=== PATIENT | female | born 1945 | race Native Hawaiian/Other Pacific Islander ===

== ENCOUNTER 2016-08-05 16:02 | Outpatient (CLI) | payer OTHER, BC | END 2016-08-05 16:03 | disposition short-term general hospital (02) | LOC: AMB 16:02 | DX: R53.1 Weakness (principal); R11.2 Nausea with vomiting, unspecified | CPT/HCPCS: A0425; A0427 ==

== ENCOUNTER 2016-10-20 08:11 | Outpatient (CLI) | payer OTHER, BC | END 2016-10-20 19:04 | disposition home or self-care (01) | LOC: MAMMO 08:11 | DX: Z12.31 Encounter for screening mammogram for malignant neoplasm of breast (principal) | CPT/HCPCS: G0202-TC ==

== ENCOUNTER 2016-11-07 07:56 | Day surgery (SDC) | payer OTHER, BC ==
[2016-11-07 09:12] LABS: POTASSIUM 3.6 mmol/L (3.6-5.2)
[2016-11-07 09:24] LABS: PLATELET COUNT 287 K/uL (152-353)
== END 2016-11-07 12:05 | disposition home or self-care (01) ==
LOC: OR 07:56
PROVIDERS: Student in an Organized Health Care Education/Training Program
PROC: 0DBK8ZX Excision of Ascending Colon, Via Natural or Artificial Opening Endoscopic, Diagnostic (ICD-10-PCS; principal; 2016-11-07)
PROC: 0DBN8ZX Excision of Sigmoid Colon, Via Natural or Artificial Opening Endoscopic, Diagnostic (ICD-10-PCS; 2016-11-07)
PROC: 0DBM8ZX Excision of Descending Colon, Via Natural or Artificial Opening Endoscopic, Diagnostic (ICD-10-PCS; 2016-11-07)
DX: D12.2 Benign neoplasm of ascending colon (principal); D12.0 Benign neoplasm of cecum; D12.4 Benign neoplasm of descending colon; D12.5 Benign neoplasm of sigmoid colon; D12.6 Benign neoplasm of colon, unspecified; K63.5 Polyp of colon
CPT/HCPCS: 80053; 85027; J2001; J2704; J3010; J3490

== ENCOUNTER 2016-12-05 06:53 | Outpatient (CLI) | payer OTHER, BC | END 2016-12-05 08:30 | disposition home or self-care (01) | LOC: NM 06:53 | DX: R06.09 Other forms of dyspnea (principal) | CPT/HCPCS: A9500; J2785 ==

== ENCOUNTER 2017-05-09 16:32 | Outpatient (CLI) | payer OTHER, BC, MEDICARE | END 2017-05-09 19:59 | disposition home or self-care (01) | LOC: LABW 16:32 | PROVIDERS: Internal Medicine Cardiovascular Disease | DX: E78.4 Other hyperlipidemia (principal) | CPT/HCPCS: 80061 ==

== ENCOUNTER 2017-09-11 09:49 | Outpatient (CLI) | payer OTHER, BC, MEDICARE | END 2017-09-11 18:18 | disposition home or self-care (01) | LOC: LABW 09:49 | PROVIDERS: Internal Medicine Cardiovascular Disease | DX: E78.4 Other hyperlipidemia (principal) | CPT/HCPCS: 36415; 80061 ==

== ENCOUNTER 2017-10-15 11:19 | Outpatient (CLI) | payer OTHER, BC, MEDICARE | END 2017-10-15 22:12 | disposition home or self-care (01) | LOC: RAD 11:19 | DX: M25.561 Pain in right knee (principal) ==

== ENCOUNTER 2017-10-17 11:17 | Outpatient (CLI) | payer OTHER, BC, MEDICARE | END 2017-10-17 23:57 | disposition home or self-care (01) | LOC: LABW 11:17 | PROVIDERS: Internal Medicine Cardiovascular Disease | DX: E78.5 Hyperlipidemia, unspecified (principal) | CPT/HCPCS: 36415; 80061 ==

== ENCOUNTER 2017-10-31 09:23 | Outpatient (CLI) | payer OTHER, BC, MEDICARE | END 2017-10-31 23:22 | disposition home or self-care (01) | LOC: MAMMO 09:23 | DX: Z12.31 Encounter for screening mammogram for malignant neoplasm of breast (principal) ==

== ENCOUNTER 2018-01-09 11:47 | Emergency (ER) | payer OTHER, BC, MEDICARE ==
[~2018-01-09] VITALS: Ht 152.4 cm; Wt 65.8 kg
[2018-01-09 12:37] LABS: PLATELET COUNT 236 K/uL (152-353)
[2018-01-09 12:49] LABS: POTASSIUM 3.7 mmol/L (3.6-5.2); SODIUM 137 mmol/L (136-145)
[2018-01-09 15:42] VITALS: BP 120/78; TEMP 98
== END 2018-01-09 15:42 | disposition home or self-care (01) ==
LOC: ED 11:47
PROVIDERS: Emergency Medicine
DX: R07.89 Other chest pain (principal)
CPT/HCPCS: 80053; 82550; 82553; 84484; 85027; 93005; 99283

== ENCOUNTER 2018-05-14 09:09 | Outpatient (CLI) | payer OTHER, BC | END 2018-05-14 21:02 | disposition home or self-care (01) | LOC: LABW 09:09 | PROVIDERS: Internal Medicine Cardiovascular Disease | DX: E78.5 Hyperlipidemia, unspecified (principal) | CPT/HCPCS: 36415; 80061 ==

== ENCOUNTER 2018-10-29 07:57 | Outpatient (CLI) | payer OTHER, BC ==
[2018-10-29 08:15] LABS: PLATELET COUNT 290 K/uL (152-353)
[2018-10-29 08:36] LABS: POTASSIUM 4.1 mmol/L (3.6-5.2)
== END 2018-10-29 19:58 | disposition home or self-care (01) ==
LOC: LABW 07:57
PROVIDERS: Internal Medicine
DX: E11.9 Type 2 diabetes mellitus without complications (principal); E03.4 Atrophy of thyroid (acquired); E78.2 Mixed hyperlipidemia; E66.09 Other obesity due to excess calories; I10 Essential (primary) hypertension; M89.8X8 Other specified disorders of bone, other site; E66.3 Overweight; Z78.0 Asymptomatic menopausal state
CPT/HCPCS: 36415; 80053; 80061; 82043; 82248; 82306; 82570; 84439; 84443; 85027

== ENCOUNTER 2018-12-31 10:51 | Outpatient (CLI) | payer OTHER, BC ==
[2018-12-31 11:19] LABS: PLATELET COUNT 298 K/uL (152-353)
[2018-12-31 11:34] LABS: POTASSIUM 4.1 mmol/L (3.6-5.2)
== END 2018-12-31 20:17 | disposition home or self-care (01) ==
LOC: LABW 10:51
PROVIDERS: Internal Medicine
DX: N18.3 Chronic kidney disease, stage 3 (moderate) (principal); D63.1 Anemia in chronic kidney disease; N25.81 Secondary hyperparathyroidism of renal origin; E03.8 Other specified hypothyroidism; D64.89 Other specified anemias; E53.8 Deficiency of other specified B group vitamins
CPT/HCPCS: 36415; 80053; 81000; 82306; 82330; 82570; 82607; 82746; 83540; 83550; 83735; 83970; 84100; 84155; 84439; 84443; 85027

== ENCOUNTER 2019-03-25 09:12 | Outpatient (CLI) | payer OTHER, BC ==
[2019-03-25 09:54] LABS: PLATELET COUNT 302 K/uL (152-353)
[2019-03-25 10:02] LABS: POTASSIUM 3.6 mmol/L (3.6-5.2)
== END 2019-03-25 20:17 | disposition home or self-care (01) ==
LOC: LABW 09:12
PROVIDERS: Internal Medicine
DX: N18.3 Chronic kidney disease, stage 3 (moderate) (principal); N25.81 Secondary hyperparathyroidism of renal origin; N03.8 Chronic nephritic syndrome with other morphologic changes; Z79.899 Other long term (current) drug therapy
CPT/HCPCS: 36415; 80053; 81000; 82306; 82330; 82570; 83735; 83970; 84100; 84155; 84439; 84443; 85027; 87086; 87088

== ENCOUNTER 2019-07-01 09:28 | Outpatient (CLI) | payer OTHER, BC ==
[2019-07-01 10:03] LABS: PLATELET COUNT 287 K/uL (152-353)
[2019-07-01 10:16] LABS: POTASSIUM 4.1 mmol/L (3.6-5.2)
== END 2019-07-01 19:14 | disposition home or self-care (01) ==
LOC: LABW 09:28
PROVIDERS: Internal Medicine
DX: I12.9 Hypertensive chronic kidney disease with stage 1 through stage 4 chronic kidney disease, or unspecified chronic kidney disease (principal); N18.3 Chronic kidney disease, stage 3 (moderate); E11.9 Type 2 diabetes mellitus without complications; E03.4 Atrophy of thyroid (acquired); E78.2 Mixed hyperlipidemia; E66.09 Other obesity due to excess calories; Z78.0 Asymptomatic menopausal state; M89.8X8 Other specified disorders of bone, other site
CPT/HCPCS: 36415; 80053; 80061; 81000; 82043; 82248; 82330; 82570; 83735; 84100; 84155; 84439; 84443; 85027

== ENCOUNTER 2020-05-04 10:17 | Outpatient (CLI) | payer BC ==
[2020-05-04 11:26] LABS: PLATELET COUNT 273 K/uL (152-353)
[2020-05-04 11:45] LABS: POTASSIUM 3.9 mmol/L (3.6-5.2)
== END 2020-05-04 21:46 | disposition home or self-care (01) ==
LOC: LABW 10:17
PROVIDERS: ATTEND Internal Medicine
DX: I12.9 Hypertensive chronic kidney disease with stage 1 through stage 4 chronic kidney disease, or unspecified chronic kidney disease (principal); R82.998 Other abnormal findings in urine
CPT/HCPCS: 36415; 80053; 81000; 82043; 82570; 83735; 84100; 84155; 85027; 87077; 87086; 87088; 87186

== ENCOUNTER 2020-07-16 11:23 | Outpatient (CLI) | payer BC | END 2020-07-16 21:48 | disposition home or self-care (01) | LOC: RAD 11:23 | PROVIDERS: ATTEND Registered Nurse | DX: M54.2 Cervicalgia (principal) ==

== ENCOUNTER 2020-08-05 09:23 | Outpatient (CLI) | payer BC ==
[2020-08-05 09:40] LABS: PLATELET COUNT 324 K/uL (152-353)
[2020-08-05 10:16] LABS: POTASSIUM 2.8 mmol/L (3.6-5.2)
== END 2020-08-05 21:04 | disposition home or self-care (01) ==
LOC: LABW 09:23
PROVIDERS: ATTEND Nurse Practitioner
DX: N18.32 Chronic kidney disease, stage 3b (principal); R53.83 Other fatigue; D64.89 Other specified anemias
CPT/HCPCS: 36415; 80053; 81000; 82306; 82330; 82570; 82728; 83540; 83550; 83735; 84100; 84155; 85027

== ENCOUNTER 2020-11-16 10:05 | Outpatient (CLI) | payer BC ==
[2020-11-16 11:05] LABS: PLATELET COUNT 333 K/uL (152-353)
[2020-11-16 11:55] LABS: POTASSIUM 3.3 mmol/L (3.6-5.2)
== END 2020-11-16 20:36 | disposition home or self-care (01) ==
LOC: LABW 10:05
PROVIDERS: ATTEND Internal Medicine
DX: N18.32 Chronic kidney disease, stage 3b (principal); R53.83 Other fatigue; D64.9 Anemia, unspecified
CPT/HCPCS: 36415; 80053; 81000; 82306; 82330; 82570; 82728; 83540; 83550; 83735; 84100; 84155; 85008; 85027; 87077; 87086; 87088; 87186

== ENCOUNTER 2021-01-20 10:15 | Outpatient (CLI) | payer BC ==
[2021-01-20 10:43] LABS: PLATELET COUNT 230 K/uL (152-353)
== END 2021-01-20 18:00 | disposition home or self-care (01) ==
LOC: LABW 10:15
PROVIDERS: ATTEND Internal Medicine
DX: N18.2 Chronic kidney disease, stage 2 (mild) (principal); R53.83 Other fatigue
CPT/HCPCS: 36415; 80053; 81000; 82043; 82306; 82330; 82570; 82728; 83540; 83550; 83735; 84100; 84155; 85027; 87077; 87086; 87088; 87186

== ENCOUNTER 2021-04-11 09:57 | Outpatient (CLI) | payer BC ==
[2021-04-11 10:20] LABS: PLATELET COUNT 228 K/uL (152-353)
[2021-04-11 10:36] LABS: POTASSIUM 4.2 mmol/L (3.6-5.2)
== END 2021-04-11 19:00 | disposition home or self-care (01) ==
LOC: LABW 09:57
PROVIDERS: ATTEND Nurse Practitioner
DX: N18.32 Chronic kidney disease, stage 3b (principal); E11.22 Type 2 diabetes mellitus with diabetic chronic kidney disease
CPT/HCPCS: 36415; 80053; 81000; 82043; 82330; 82570; 83036; 83735; 84100; 84155; 85027

== ENCOUNTER 2021-11-07 10:55 | Outpatient (CLI) | payer BC ==
[2021-11-07 11:39] LABS: PLATELET COUNT 224 K/uL (152-353)
[2021-11-07 11:45] LABS: POTASSIUM 4.4 mmol/L (3.6-5.2)
== END 2021-11-07 18:50 | disposition home or self-care (01) ==
LOC: LABW 10:55
PROVIDERS: ATTEND Internal Medicine
DX: N18.32 Chronic kidney disease, stage 3b (principal); E11.22 Type 2 diabetes mellitus with diabetic chronic kidney disease; E03.9 Hypothyroidism, unspecified; R82.90 Unspecified abnormal findings in urine
CPT/HCPCS: 36415; 80053; 81002; 81015; 82043; 82330; 82570; 83036; 83735; 84100; 84156; 84439; 84443; 85027; 87086; 87088

== ENCOUNTER 2022-03-21 13:58 | Outpatient (CLI) | payer BC ==
[2022-03-21 14:34] LABS: PLATELET COUNT 235 K/uL (152-353)
[2022-03-21 14:57] LABS: POTASSIUM 4.5 mmol/L (3.6-5.2)
== END 2022-03-21 21:00 | disposition home or self-care (01) ==
LOC: LABW 13:58
PROVIDERS: ATTEND Internal Medicine
DX: E11.22 Type 2 diabetes mellitus with diabetic chronic kidney disease (principal); N18.32 Chronic kidney disease, stage 3b; E03.8 Other specified hypothyroidism
CPT/HCPCS: 36415; 80053; 81002; 82043; 82306; 82330; 82570; 83036; 83735; 83970; 84100; 84156; 84439; 84443; 85027

== ENCOUNTER 2022-06-06 11:03 | Outpatient (CLI) | payer BC ==
[2022-06-06 11:44] LABS: PLATELET COUNT 198 K/uL (152-353)
[2022-06-06 11:51] LABS: POTASSIUM 3.5 mmol/L (3.6-5.2)
== END 2022-06-06 19:38 | disposition home or self-care (01) ==
LOC: LABW 11:03
PROVIDERS: ATTEND Internal Medicine
DX: E11.22 Type 2 diabetes mellitus with diabetic chronic kidney disease (principal); N18.32 Chronic kidney disease, stage 3b; E03.8 Other specified hypothyroidism
CPT/HCPCS: 36415; 80053; 81002; 82043; 82306; 82330; 82570; 83036; 83735; 83970; 84100; 84156; 84439; 84443; 85027